=== PATIENT | male | born 2000 | race Caucasian/White ===

== ENCOUNTER 2022-07-13 13:58 | Emergency (ER) | payer SELFPAY ==
[2022-07-13 14:00] VITALS: BP 112/67; PULSE 78; RESP 16; TEMP 36.6; O2SAT 99; BMI 20.1
--- NOTE | 2022-07-13 14:23 | EDS_ITS ---
HPI History of Present Illness Chief Complaint: Nausea/Vomiting Informant: patient Narrative Narrative: Patient presents with an episode of nausea and vomiting with blood. Patient states he ate [place] food a lot last night. This morning when he woke up and he felt nauseated. He vomited in the bathroom. He vomited several times in a row. 1 of those had a string of blood in it that was about 2 inches long. He said it was bright red. There is no large volume of blood. He has not had this recur. It happened only once. He since then has resolved all symptoms. He does not have any pain nausea or symptoms at all. No black or bloody stools. No history of abnormal bleeding or bruising. He has been eating and feels fine now. PFSH PFSH Home Medications ondansetron 4 mg disintegrating tablet 4 mg PO Q8H PRN PRN Nausea #3 tabs 07/13/22 [Rx Last Taken Unknown] Allergy/AdvReac Type Severity Reaction Status Date / Time No Known Allergies Allergy Verified 07/13/22 13:59 Social History Smoking Status: Current every day smoker tobacco type: e-cigarettes ROS ROS ED Constitutional Constitutional ED: Denies chills or fever(s) ENT ENT ED: Denies rhinorrhea or sore throat Cardiovascular Cardiovascular: Denies chest pain, palpitations or racing heartbeat Respiratory/Chest Respiratory/Chest: Denies cough or dyspnea Gastrointestinal Gastrointestinal: Reports nausea and vomiting; Denies abdominal pain, constipation, diarrhea or melena Genitourinary Genitourinary ED: Denies hematuria Musculoskeletal Musculoskeletal: Denies myalgias Integumentary Denies rash Endocrine Endocrinology: Denies polydipsia or polyuria Hematologic/Lymphatic Hematologic/Lymphatic: Denies anemia, easy bleeding or easy bruising Allergic/Immunologic Allergic/Immunologic ED: Denies urticaria EXAM Physical Exam Narrative Exam Narrative: Patient is sitting comfortably on bed. No acute distress. Does not look pale. HEENT: Dukas membranes are moist. I see no intraoral petechiae. Eyes: No pallor or icterus Neck is supple without JVD Lungs are completely clear bilaterally. Heart is regular without murmur gallop rub or tachycardia Abdomen is soft and completely nontender in all areas. No rebound no guarding. No CVA tenderness or suprapubic tenderness Extremities show no pallor and no abnormal bruising at all. Const Vital Signs: 07/13/22 14:00 Temperature 97.8 F Temperature Source Temporal Pulse Rate 78 Respiratory Rate 16 Blood Pressure 112/67 Blood Pressure Mean 82 Pulse Ox 99 Oxygen Delivery Method Room Air Positive well nourished and well developed General Appearance ED: well developed MDM MDM MDM Narrative Medical decision making narrative: This patient woke up and had nausea and vomiting. After vomiting his symptoms completely went away. He had 1 episode of vomiting that had a small red string of blood present. But this was not repeated. He has no symptoms at all now and has a normal exam. No sign of anemia or petechiae or abnormal bruising. No history of abnormal bleeding. I think the patient does not really need a work- up at this time since his exam is normal and his symptoms have completely resolved. He did not have a large volume hematemesis. He only had a small amount. This may have been a very small Kyra-Gonzales tear that has healed and stopped bleeding now. I recommend he try some Prilosec for a few days to a week just once a day. I will write for Zofran and told him he can fill this if he develops any nausea. If he develops recurrent nausea or develops any pain fevers or recurrent hematemesis I would recommend he come back and at that point we will pursue a more comprehensive work-up. All questions were answered and he is happy with this plan. Discharge Plan Triage Chief Complaint: Nausea/Vomiting ED Provider: Navid Elena Dx/Rx/DC Orders Clinical Impression: Nausea & vomiting, History of hematemesis Instructions: ED Vomiting (Adult) Prescriptions: New ondansetron [ondansetron] 4 mg tablet,disintegrating 4 mg PO Q8H PRN PRN (Reason: Nausea) Qty: 3 0RF Stand Alone Forms: ED Work / School Excuse Primary Care Provider: Care Physician,No Primary Referrals: Dedrick Moreno MD [Med Staff - Work Measurement Engineer] - 3-5 Days if not improving Disposition Disposition: Home, Self Care
== END 2022-07-13 14:57 | disposition home or self-care (01) ==
PROVIDERS: Emergency Provider Emergency Medicine; Visit Provider Emergency Medicine
DX: R11.2 Nausea with vomiting, unspecified (principal); F17.290 Nicotine dependence, other tobacco product, uncomplicated; Z87.19 Personal history of other diseases of the digestive system
CPT/HCPCS: 99282